=== PATIENT | male | born 1970 | race Caucasian/White ===

== ENCOUNTER 2016-06-24 20:47 | Emergency (ER) | payer MEDICAID ==
[2016-06-24 20:58] VITALS: RESP 20; TEMP 98.6; O2SAT 96
[2016-06-24] MEDS ORDERED: Oxycodone/Acetaminophen 5/325 mg Tab PO STA (21:00)
[2016-06-24] MEDS ORDERED: Oxycodone/Acetaminophen 5/325 mg Tab ONE (21:03)
--- NOTE | 2016-06-24 21:14 | C.PDOC ---
History Of Present Illness 46 y/o male presents to the ED with complains of right wrist pain x2 days. Pt states he has been using a mop and persistently twisting it to wring out water. Pt had fracture to scaphoid bone 15 years ago, with bone graft repair. Denies weakness, numbness, or any other complaints. Pt is right hand dominant. Time Seen by Provider: 06/24/16 20:56 Chief Complaint (Nursing): Upper Extremity Problem/Injury History Per: Patient History/Exam Limitations: no limitations Onset/Duration Of Symptoms: Days Current Symptoms Are (Timing): Still Present Quality: "Pain" Severity: Moderate Recent travel outside of the [place]: No Past Medical History Reviewed: Historical Data, Nursing Documentation, Vital Signs Vital Signs: Last Vital Signs Temp 98.6 F 06/24/16 20:55 Pulse 80 06/24/16 22:38 Resp 20 06/24/16 22:38 BP 129/87 06/24/16 22:38 Pulse Ox 96 06/24/16 21:31 - Medical History PMH: Asthma, Kidney Stones (5 mos ago) Family History: States: Unknown Family Hx - Social History Hx Alcohol Use: Yes Hx Substance Use: No - Immunization History Hx Tetanus Toxoid Vaccination: No Hx Influenza Vaccination: No Hx Pneumococcal Vaccination: No Review Of Systems Except As Marked, All Systems Reviewed And Found Negative. Constitutional: Negative for: Fever Musculoskeletal: Positive for: Other (right wrist pain) Neurological: Negative for: Weakness, Numbness Physical Exam - Physical Exam Appears: Non-toxic, No Acute Distress Skin: Warm, Dry, No Rash Head: Atraumatic, Normacephalic Eye(s): bilateral: Normal Inspection, EOMI Nose: Normal Oral Mucosa: Moist Chest: Symmetrical Respiratory: No Accessory Muscle Use Extremity: No Normal ROM (decreased ROM secondary to pain), Tenderness (ulnar aspect right wrist; no snuff box tenderness), Capillary Refill (<2 seconds), No Deformity, No Swelling, Other (healed incision scar to right wrist) Pulses: Right Radial: Normal Neurological/Psych: Oriented x3, Normal Motor, Normal Sensation ED Course And Treatment O2 Sat by Pulse Oximetry: 96 (on room air) Pulse Ox Interpretation: Normal - Other Rad XR hand X-Ray: Viewed By Me, Read By Radiologist Interpretation: EXAM: XR Right Hand Complete, 3 or More Views. CLINICAL HISTORY: 46 years old, male; Pain; Hand and wrist; Right; Additional info: Trauma. TECHNIQUE: Frontal, lateral and oblique views of the right hand. COMPARISON: CR - WRIST, RIGHT 3 VIEWS 06/24/2016 9:02:22 PM. FINDINGS: Deformity with evidence of degenerative changes involving the scaphoid, lunate and distal radius. Correlate with history, appears to secondary to prior trauma. Cannot exclude acute scaphoid. fracture. Comparison with prior imaging or followup cross-sectional imaging may aid in evaluation. IMPRESSION: Deformity with evidence of degenerative changes involving the scaphoid, lunate and distal radius. Correlate with history, appears to secondary to prior trauma. Cannot exclude acute scaphoid. fracture. Comparison with prior imaging or followup cross-sectional imaging may aid in evaluation. Thank you for allowing us to participate in the care of your patient. Dictated and Authenticated by: Antonina Frausto MD. 06/24/2016 9:27 PM Eastern Time ([place] & [place]) - CT Scan/US R Wrist Other Rad Studies (CT/US): Read By Radiologist, Radiology Report Reviewed CT/US Interpretation: EXAM: CT Right Upper Extremity Without Intravenous Contrast, Wrist. CLINICAL HISTORY: 46 years old, male; Pain; Wrist; Right; Prior surgery; Surgery date: 6+ months; Surgery type: Scaphoid FX surgery 15 years ago; Additional info: R/O scaphoid FX. TECHNIQUE: Axial computed tomography images of the right wrist without intravenous contrast. This CT exam. was performed using one or more of the following dose reduction techniques: automated exposure. control, adjustment of the mA and/or kV according to patient size, and/or use of iterative. reconstruction technique. Coronal and sagittal reformatted images were created and reviewed. COMPARISON: CR - WRIST, RIGHT 3 VIEWS 06/24/2016 9:02:22 PM. 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 Posttraumatic. degenerative changes involve the scaphoid, lunate and distal radius and to a lesser extent the. trapezoid, trapezium and triquetrum. Associated small fracture fragments. No acute fracture line visualized. 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 Posttraumatic. degenerative changes involve the scaphoid, lunate and distal radius and to a lesser extent the. trapezoid, trapezium and triquetrum. Associated small fracture fragments. No acute fracture line visualized. Thank you for allowing us to participate in the care of your patient Progress Note: Plan: XR right hand and wrist. . THumb spica applied by biological technician. Pt was instructed to follow up with ortho in 1-2 days for re-evaluation. Copies of CT given. Case dsicussed with Dr Cleaning who evaluated imaging results and agreedupon plan and discharge. Disposition - Disposition Referrals: Rubina Galeana MD [Staff Provider] - Disposition: HOME/ ROUTINE Disposition Time: 22:41 Condition: STABLE Additional Instructions: Strict follow up with bone doctor in 1-2 days. Return to ER if symptoms persist or worsen. Prescriptions: traMADol [Ultram] 50 mg PO Q8 #20 tab Instructions: Wrist Injury (ED) - Clinical Impression Clinical Impression: Pain in wrist - PA / HIGH LIGHTER / Resident Statement MD/DO has reviewed & agrees with the documentation as recorded. - Scribe Statement The provider has reviewed the documentation as recorded by the Linden Schulz All medical record entries made by the Linden were at my direction and personally dictated by me. I have reviewed the chart and agree that the record accurately reflects my personal performance of the history, physical exam, medical decision making, and the department course for this patient. I have also personally directed, reviewed, and agree with the discharge instructions and disposition.
--- NOTE | 2016-06-24 22:34 | CT ---
EXAM: CT Right Upper Extremity Without Intravenous Contrast, Wrist CLINICAL HISTORY: 46 years old, male; Pain; Wrist; Right; Prior surgery; Surgery date: 6+ months; Surgery type: Scaphoid FX surgery 15 years ago; Additional info: R/O scaphoid FX TECHNIQUE: Axial computed tomography images of the right wrist without intravenous contrast. This CT exam was performed using one or more of the following dose reduction techniques: automated exposure control, adjustment of the mA and/or kV according to patient size, and/or use of iterative reconstruction technique. Coronal and sagittal reformatted images were created and reviewed. 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 Posttraumatic degenerative changes involve the scaphoid, lunate and distal radius and to a lesser extent the trapezoid, trapezium and triquetrum. Associated small fracture fragments. No acute fracture line visualized. 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 Posttraumatic degenerative changes involve the scaphoid, lunate and distal radius and to a lesser extent the trapezoid, trapezium and triquetrum. Associated small fracture fragments. No acute fracture line visualized.
[2016-06-24 22:38] VITALS: BP 129/87; PULSE 80
--- NOTE | 2016-06-25 11:29 | RAD ---
PROCEDURE: Right Hand Radiographs. HISTORY: trauma COMPARISON: None. FINDINGS: BONES: Probable old ununited scaphoid fracture. Sclerotic borders. Questionable cystic change in the distal fragment adjacent to fracture site. No acute fracture identified. JOINTS: Radiocarpal osteoarthritis. Normal carpal alignment is maintained. SOFT TISSUES: Normal. OTHER FINDINGS: None. IMPRESSION: Probable old ununited scaphoid fracture. Please correlate clinically. Radiocarpal osteoarthritis.
--- NOTE | 2016-06-25 11:36 | RAD ---
PROCEDURE: Right Wrist Radiographs. HISTORY: trauma COMPARISON: None. FINDINGS: BONES: Probable old ununited fracture scaphoid with sclerotic margins. Cystic changes within scaphoid likely adjacent to fracture site. No evidence of acute fracture. JOINTS: Normal carpal alignment maintained. Radiocarpal osteoarthritis. SOFT TISSUES: Normal. OTHER FINDINGS: None. IMPRESSION: Probable old ununited scaphoid fracture. No evidence of acute fracture.
== END 2016-06-24 23:06 | disposition home or self-care (01) ==
LOC: C.ER 20:47
DX: M25.531 Pain in right wrist (principal)

== ENCOUNTER 2016-12-19 11:18 | Emergency (ER) | payer MEDICAID ==
[2016-12-19 11:48] VITALS: BMI 27.2
--- NOTE | 2016-12-19 13:44 | RAD ---
HISTORY: r/o infiltrate COMPARISON: No prior. TECHNIQUE: Chest PA and lateral FINDINGS: LUNGS: Suspect mild scarring and/or pleural thickening changes in both lung apices right greater than left PLEURA: No significant pleural effusion identified. No pneumothorax apparent. CARDIOVASCULAR: Normal. OSSEOUS STRUCTURES: No significant abnormalities. VISUALIZED UPPER ABDOMEN: Normal. OTHER FINDINGS: None. IMPRESSION: Suspect mild scarring and/or pleural thickening changes in both lung apices right greater than left
[2016-12-19 14:06] VITALS: BP 128/72; PULSE 76; RESP 18; TEMP 98.4; O2SAT 97
--- NOTE | 2016-12-19 14:17 | C.PDOC ---
History Of Present Illness 46 yr old male presents to the ER for evaluation of a chronic cough for the past 1 week, associated with subjective fever. Patient reports history of asthma and smoking for 40 years. Patient denies recent travel, chest pain, SOB, nausea, vomiting, abdominal pain, headache, weakness or numbness. Time Seen by Provider: 12/19/16 11:54 Chief Complaint (Nursing): Flu-like Symptoms History Per: Patient History/Exam Limitations: no limitations Onset/Duration Of Symptoms: Days (1 week) Current Symptoms Are (Timing): Still Present Sick Contacts (Context): None Past Medical History Reviewed: Historical Data, Nursing Documentation, Vital Signs Vital Signs: Last Vital Signs Temp 98.4 F 12/19/16 14:05 Pulse 76 12/19/16 14:05 Resp 18 12/19/16 14:05 BP 128/72 12/19/16 14:05 Pulse Ox 97 12/19/16 15:34 - Medical History PMH: Asthma, Kidney Stones (5 mos ago) Family History: States: No Known Family Hx - Social History Hx Alcohol Use: Yes Hx Substance Use: No - Immunization History Hx Tetanus Toxoid Vaccination: No Hx Influenza Vaccination: No Hx Pneumococcal Vaccination: No Review Of Systems Except As Marked, All Systems Reviewed And Found Negative. Constitutional: Positive for: Fever (Subjective) Cardiovascular: Negative for: Chest Pain Respiratory: Positive for: Cough. Negative for: Shortness of Breath Gastrointestinal: Negative for: Nausea, Vomiting, Abdominal Pain Neurological: Negative for: Weakness, Numbness, Headache Physical Exam - Physical Exam Appears: Non-toxic, No Acute Distress Skin: Warm, Dry, No Rash Head: Atraumatic, Normacephalic Oral Mucosa: Moist Neck: Normal, Normal ROM, Supple Chest: Symmetrical, No Tenderness Cardiovascular: Rhythm Regular, No Murmur Respiratory: No Rales, No Rhonchi, No Stridor, Wheezing (Minimal expirtory bilateral wheezing) Extremity: Normal ROM, No Swelling Neurological/Psych: Oriented x3, Normal Speech, Normal Motor ED Course And Treatment O2 Sat by Pulse Oximetry: 97 (RA) Pulse Ox Interpretation: Normal - Other Rad CXR X-Ray: Viewed By Me, Read By Radiologist Interpretation: HISTORY: r/o infiltrate. COMPARISON: No prior. TECHNIQUE: Chest PA and lateral. FINDINGS: LUNGS: Suspect mild scarring and/or pleural thickening changes in both lung apices right greater than left. PLEURA: No significant pleural effusion identified. No pneumothorax apparent. CARDIOVASCULAR: Normal. OSSEOUS STRUCTURES: No significant abnormalities. VISUALIZED UPPER ABDOMEN: Normal. OTHER FINDINGS: None. IMPRESSION: Suspect mild scarring and/or pleural thickening changes in both lung apices right greater than left. Medical Decision Making Medical Decision Making: PLAN: * CXR * Prednisone PO Disposition - Disposition Referrals: Clinic,Med Surg [Primary Care Provider] - Disposition: HOME/ ROUTINE Disposition Time: 13:40 Condition: GOOD Additional Instructions: Thank you for letting us take care of you today. Your provider was Dr. Gibson. You were treated for persistent cough. The emergency medical care you received today was directed at your acute symptoms. If you were prescribed any medication, please fill it and take as directed. It may take several days for your symptoms to resolve. Return to the Emergency Department if your symptoms worsen, do not improve, or if you have any other problems. Please contact your doctor or call one of the physicians/clinics you have been referred to that are listed on the Patient Visit Information form that is included in your discharge packet. Bring any paperwork you were given at discharge with you along with any medications you are taking to your follow up visit. Our treatment cannot replace ongoing medical care by a primary care provider (PCP) outside of the emergency department. Thank you for allowing the [facility] team to be part of your care today. Follow up with your doctor in 2-3 days for re-evaluation and further management. Prescriptions: Albuterol HFA [Ventolin HFA 90 mcg/actuation (8 g)] 2 puff IH [id number] PRN #1 puff PRN Reason: Wheezing Azithromycin [Zithromax] 250 mg PO DAILY #6 tab predniSONE [Prednisone] 40 mg PO DAILY #10 tab Instructions: How to Stop Smoking (ED) Forms: [employer] (Ukrainian) - Clinical Impression Clinical Impression: Upper respiratory infection, Asthma - Scribe Statement The provider has reviewed the documentation as recorded by the Loibe Kym Henderson Provider Attestation: All medical record entries made by the Scribe were at my direction and personally dictated by me. I have reviewed the chart and agree that the record accurately reflects my personal performance of the history, physical exam, medical decision making, and the department course for this patient. I have also personally directed, reviewed, and agree with the discharge instructions and disposition.
== END 2016-12-19 14:06 | disposition home or self-care (01) ==
LOC: SUPCPDRO 11:18 → C.ER 11:18
DX: J45.909 Unspecified asthma, uncomplicated (principal); J06.9 Acute upper respiratory infection, unspecified; F17.210 Nicotine dependence, cigarettes, uncomplicated